=== PATIENT | male | born 1980 | race Caucasian/White ===

== ENCOUNTER → 2017-02-27 | Outpatient (CLI) | payer BC ==
--- NOTE | 2017-03-01 09:30 | SLEEPHOME ---
DATE OF PROCEDURE: 02/27/2017 REFERRING PHYSICIAN: Dr. Anibal Toledo INTERPRETATION: Diagnostic home sleep testing is performed due to concern for the obstructive sleep apnea syndrome in this patient with a history of excessive daytime somnolence. For testing a NOX-T3 respiratory monitoring device was used. Continuous record was made of pulse, oxygen saturation, airflow, chest and abdominal strain, and body position. 7 hours and 59 minutes of data were reviewed. Of these 5 hours and 45 minutes were marked as time in bed. During the interval amount of time in bed, there were 29 respiratory events identified of 10 seconds in duration or greater for a respiratory event index of 5. The events were primarily obstructive. Baseline pulse rate 58%, pulse rate range 40 to 86. Baseline saturation 90%. Lowest oxygen saturation 84%. Testing was performed in both the supine and non-supine positions. IMPRESSION: Abnormal home sleep testing with repetitive respiratory events and oxygen desaturations to 84%. RECOMMENDATION: As home testing tends to under estimate the severity of disease, it is recommended that the patient be referred for formal sleep evaluation and in-laboratory pressure titration.
== END ==
LOC: M SLEEP HO 08:47
PROVIDERS: ATTEND Nurse Practitioner Adult Health
DX: G47.9 Sleep disorder, unspecified (principal)

== ENCOUNTER → 2017-06-13 | Outpatient (CLI) | payer BC ==
--- NOTE | 2017-06-15 18:52 | SLEEPCENT ---
DATE OF PROCEDURE: 06/13/2017 REFERRING PHYSICIAN: Essie Ball Nocturnal polysomnography was performed for the titration of pressure therapy in this patient with a clinical diagnosis of obstructive sleep apnea syndrome supported by home testing revealing repetitive respiratory events and oxygen desaturations to 84% as well as a respiratory event index of 5. The patient attempted palliation with a variable device, but auto CPAP was unsuccessful. For testing, A [employer] Simplus full face mask of medium size was used, 4 cm of water pressure applied to the circuit and the lights were extinguished. 8 hours and 35 minutes of data were reviewed. There were 368 minutes of sleep identified. Sleep latency was prolonged at 77 minutes. Rapid eye movement (REM) latency was mildly prolonged at 135 minutes. Sleep architecture improved with optimal pressure therapy. There were three REM periods appreciated. Overall sleep efficiency was 73.3%. The patient EKG showed a sinus rhythm with an average heart rate of 56 beats per minute. EEG showed normal waveforms for awake and sleep. Persistent respiratory events prompted an increase in CPAP. Optimal sleep was seen on a CPAP pressure of +9. With this pressure, the patient was able to sleep through REM without respiratory event or oxygen desaturation. Some limb activity was seen scattered over the course of the study. Limb movement arousal index was 2.3. Remaining measures of sleep physiology were normal. IMPRESSION: Obstructive sleep apnea syndrome (G47.33). RECOMMENDATION: Nightly use of pressure therapy 8 cm of water.
== END ==
LOC: M SLEEP 19:42
PROVIDERS: ATTEND Nurse Practitioner Adult Health
DX: G47.33 Obstructive sleep apnea (adult) (pediatric) (principal)